=== PATIENT | male | born 1950 | race Caucasian/White ===

== ENCOUNTER 2017-02-19 07:01 | Day surgery (SDC) | payer MEDICARE, OTHER ==
[~2017-02-19] VITALS: Ht 177.8 cm; Wt 122.5 kg
[2017-02-19] MEDS ORDERED: NIFE20CA PO (07:26)
[2017-02-19] MEDS ORDERED: RIV20T PO (07:26)
[2017-02-19] MEDS ORDERED: AMIO200T33 PO (07:26)
[2017-02-19] MEDS ORDERED: TERA5CAP42 PO (07:26)
[2017-02-19] MEDS ORDERED: NAPR375T3 PO (07:26)
[2017-02-19] MEDS ORDERED: ATEN50TA PO (07:26)
[2017-02-19] MEDS ORDERED: METF-370 PO (07:26)
[2017-02-19] MEDS ORDERED: NALOXONE HCL 0.4 MG/ML VIAL IV ONE (07:30)
[2017-02-19] MEDS ORDERED: FLUMAZENIL 0.1 MG/ML INJ 10ML MDV IV ONE (07:30)
[2017-02-19] MEDS ORDERED: MIDAZOLAM HCL 1MG/1ML-2 ML VIAL IV ONE (07:30)
[2017-02-19] MEDS ORDERED: fentaNYL CITRATE 100 MCG/2 ML VL IV ONE (07:30)
[2017-02-19] MEDS ORDERED: LIDOCAINE VISCOUS 2% 15ML UD PO ONE (07:45)
[2017-02-19] MEDS ORDERED: diphenhdrAMINE HCL 50 MG/1 ML VL ONE (08:34)
[2017-02-19] MEDS ORDERED: diphenhdrAMINE HCL 50 MG/1 ML VL IV ONE (09:00)
== END 2017-02-19 09:40 | disposition home or self-care (01) ==
LOC: CATH 07:01
PROVIDERS: ATTEND Internal Medicine
DX: I34.0 Nonrheumatic mitral (valve) insufficiency (principal); I07.1 Rheumatic tricuspid insufficiency; I51.9 Heart disease, unspecified; I48.91 Unspecified atrial fibrillation; E11.9 Type 2 diabetes mellitus without complications; I10 Essential (primary) hypertension
CPT/HCPCS: 92960; 93005; 93312; J1200; J2250; J3010; J7030; 99152; 99153

== ENCOUNTER 2017-02-20 15:34 | Inpatient (IN) | payer MEDICARE, OTHER ==
[~2017-02-20] VITALS: Ht 177.8 cm; Wt 122.5 kg
[~2017-02-20 15:34] MED LIST: AMIO200T33 PO; ATEN50TA PO; METF-370 PO; NAPR375T3 PO; NIFE20CA PO; RIV20T PO; TERA5CAP42 PO
[2017-02-20] MEDS ORDERED: FUROSEMIDE 40 MG/4 ML VIAL IV ONE (16:30)
[2017-02-20 16:42] LABS: Basophils # (auto) 0 uL; Basophils % (auto) 0.2 % (0.0-2.0); Eosinophils # (auto) 0.1 uL; Eosinophils % (auto) 0.7 % (0.0-7.0); Hematocrit 42.5 % (41.0-53.0); Hemoglobin 14.3 g/dL (13.5-17.5); Lymphocytes # (auto) 0.6 uL; Lymphocytes % (auto) 7.2 % (10.0-50.0); Mean Corpuscular Hemoglobin 31.2 pg (28.0-32.0); Mean Corpuscular Hgb Conc. 33.7 g/dL (32.0-36.0); Mean Corpuscular Volume 92.6 fL (80.0-100.0); Mean Platelet Volume 8.9 fL (6.9-10.8); Monocytes # (auto) 0.6 uL; Monocytes % (auto) 6.5 % (0.0-12.0); Neutrophils # (auto) 7.5 uL; Neutrophils % (auto) 85.4 % (37.0-80.0); Platelet Count (auto) 105 10^3/uL (140-450); Red Cell Distribution Width 13.4 % (11.8-14.3); White Blood Cell 8.7 10^3/uL (4.4-10.8)
[2017-02-20 17:02] LABS: INR 1.38 (0.9-1.15); Partial Thromboplastin Time 31.5 sec (22.64-33.71); Prothrombin Time 15.1 sec (9.37-12.3)
[2017-02-20 17:04] LABS: Albumin 3.9 g/dL (3.4-5.0); Alkaline Phosphatase 58 U/L (45-117); Anion Gap 7 (5-15); Aspartate Aminotransferase 23 U/L (15-37); BUN/Creatinine Ratio 22.9; Bilirubin, Total 1.3 mg/dL (0.2-1.0); Blood Urea Nitrogen 24 mg/dL (7-18); Calcium 7.9 mg/dL (8.5-10.1); Carbon Dioxide 26 mmol/L (21-32); Chloride 107 mmol/L (98-107); GFR African American 91 mL/min; GFR Non-African American 75 mL/min; Glucose 154 mg/dL (74-106); Potassium 3.6 mmol/L (3.5-5.1); Sodium 140 mmol/L (136-145); Total Protein 7.2 g/dL (6.4-8.2)
[2017-02-20 17:09] LABS: B-Type Natriuretic Peptide 384.81 pg/mL (0-100)
[2017-02-20 17:13] LABS: Temperature: 22.1 C (20.0-25.0)
[2017-02-20] MEDS ORDERED: DOCUSATE SOD 100 MG CAP PO PRN (17:15)
[2017-02-20] MEDS ORDERED: NITROGLYCERIN 0.4 MG SL TAB SL PRN (17:15)
[2017-02-20] MEDS ORDERED: TEMAZEPAM 15 MG CAP PO PRN (17:15)
[2017-02-20] MEDS ORDERED: ACETAMINOPHEN 325 MG TAB PO PRN (17:15)
[2017-02-20] MEDS ORDERED: HYDROcodone-ACET 5/325MG TAB PO PRN (17:15)
[2017-02-20] MEDS ORDERED: ONDANSETRON HCL 4 MG/2 ML VIAL IV PRN (17:15)
[2017-02-20] MEDS ORDERED: MORPHINE SULFATE 10 MG/ML INJ 1ML SDV IV PRN (17:15)
[2017-02-20] MEDS ORDERED: DEXTROSE (50%) 50ML SYRG IV PRN (17:30)
[2017-02-20] MEDS ORDERED: MULTIPLE VITAMIN TAB PO ONE (17:45)
[2017-02-20] MEDS ORDERED: RIVAROXABAN 20 MG TAB PO SCH (18:00)
[2017-02-20] MEDS: InsuLIN REG 1unit/0.01ml Soln (100units/ml) SC SCH (22:00)
[2017-02-20] MEDS ORDERED: TERAZOSIN HCL 5 MG CAP PO SCH (22:00)
[2017-02-20] MEDS: NIFEdipine 10 MG CAP PO SCH (22:18)
[2017-02-20] MEDS: AMIODARONE HCL 200 MG TAB PO SCH (22:18)
[2017-02-20] MEDS: NAPROXEN 500 MG TAB PO SCH (22:18)
[2017-02-20] MEDS: SODIUM CHLOR 0.9% PF (SALINE LOCK) 10ML VIAL IV SCH (22:18)
[2017-02-20] MEDS: POTASSIUM CHL 10 Meq TABLET PO SCH (22:18)
[2017-02-20] MEDS: ACCU-CHEK COMFORT CURVE STRIP VI SCH (22:21)
[2017-02-21] MEDS ORDERED: FUROSEMIDE 40 MG/4 ML VIAL IV SCH (06:00)
[2017-02-21] MEDS: NIFEdipine 10 MG CAP PO SCH ×2 (06:25→14:07)
[2017-02-21] MEDS: SODIUM CHLOR 0.9% PF (SALINE LOCK) 10ML VIAL IV SCH ×2 (06:25→14:07)
[2017-02-21 06:45] LABS: Urine Bilirubin Negative (Negative); Urine Blood Negative /uL (Negative); Urine Color Yellow (Yellow); Urine Glucose Normal (Normal); Urine Ketone Negative (Negative); Urine Nitrite Negative (Negative); Urine RBC <1 /hpf (0 - 3); Urine Urobilinogen Normal (Negative); Urine pH 5.5 (5.0-8.0)
[2017-02-21] MEDS: ACCU-CHEK COMFORT CURVE STRIP VI SCH ×2 (07:32→11:30)
[2017-02-21] MEDS: InsuLIN REG 1unit/0.01ml Soln (100units/ml) SC SCH ×2 (07:33→12:49)
[2017-02-21] MEDS ORDERED: BUMETANIDE (0.25MG/ML) 4 ML VIAL IV ONE (07:45)
[2017-02-21 08:59] LABS: Basophils # (auto) 0 uL; Basophils % (auto) 0.4 % (0.0-2.0); Eosinophils # (auto) 0.1 uL; Eosinophils % (auto) 1.2 % (0.0-7.0); Hematocrit 43.7 % (41.0-53.0); Hemoglobin 14.6 g/dL (13.5-17.5); Lymphocytes # (auto) 0.9 uL; Lymphocytes % (auto) 11.8 % (10.0-50.0); Mean Corpuscular Hemoglobin 30.9 pg (28.0-32.0); Mean Corpuscular Hgb Conc. 33.4 g/dL (32.0-36.0); Mean Corpuscular Volume 92.4 fL (80.0-100.0); Mean Platelet Volume 8.7 fL (6.9-10.8); Monocytes # (auto) 0.5 uL; Monocytes % (auto) 7.4 % (0.0-12.0); Neutrophils # (auto) 5.7 uL; Neutrophils % (auto) 79.2 % (37.0-80.0); Nucleated Red Blood Cells % 0.1 %; Platelet Count (auto) 113 10^3/uL (140-450); Red Cell Distribution Width 13.4 % (11.8-14.3); White Blood Cell 7.2 10^3/uL (4.4-10.8)
[2017-02-21 09:22] LABS: Albumin 3.7 g/dL (3.4-5.0); Alkaline Phosphatase 57 U/L (45-117); Anion Gap 8 (5-15); Aspartate Aminotransferase 17 U/L (15-37); Blood Urea Nitrogen 18 mg/dL (7-18); Calcium 7.5 mg/dL (8.5-10.1); Carbon Dioxide 27 mmol/L (21-32); Chloride 105 mmol/L (98-107); GFR African American 96 mL/min; GFR Non-African American 79 mL/min; Glucose 140 mg/dL (74-106); Potassium 3.3 mmol/L (3.5-5.1); Sodium 140 mmol/L (136-145)
[2017-02-21] MEDS ORDERED: MULTIPLE VITAMIN TAB PO SCH (10:00)
[2017-02-21] MEDS ORDERED: ATENOLOL 50 MG TAB PO SCH (10:00)
[2017-02-21] MEDS ORDERED: PATIENTS OWN MEDICATION PO SCH ×2 (10:00)
[2017-02-21] MEDS: AMIODARONE HCL 200 MG TAB PO SCH (10:08)
[2017-02-21] MEDS: POTASSIUM CHL 10 Meq TABLET PO SCH (10:08)
[2017-02-21] MEDS: NAPROXEN 500 MG TAB PO SCH (10:09)
[2017-02-21 14:30] VITALS: BP 155/78
[2017-02-21] MEDS ORDERED: POTASSIUM CHL 10 Meq TABLET PO ONE (14:30)
== END 2017-02-21 15:07 | disposition home or self-care (01) | DRG 291 ==
LOC: ER 15:34 → OVERFLOW 15:35
PROVIDERS: ADMIT Internal Medicine; ATTEND Internal Medicine
DX: I13.0 Hypertensive heart and chronic kidney disease with heart failure and stage 1 through stage 4 chronic kidney disease, or unspecified chronic kidney disease (principal); I50.43 Acute on chronic combined systolic (congestive) and diastolic (congestive) heart failure; J96.01 Acute respiratory failure with hypoxia; E11.21 Type 2 diabetes mellitus with diabetic nephropathy; D68.9 Coagulation defect, unspecified; D68.69 Other thrombophilia; D69.6 Thrombocytopenia, unspecified; I48.92 Unspecified atrial flutter; E11.22 Type 2 diabetes mellitus with diabetic chronic kidney disease; E66.01 Morbid (severe) obesity due to excess calories; E83.51 Hypocalcemia; G47.30 Sleep apnea, unspecified; I25.10 Atherosclerotic heart disease of native coronary artery without angina pectoris; I48.0 Paroxysmal atrial fibrillation; N18.9 Chronic kidney disease, unspecified; Z90.89 Acquired absence of other organs; I25.2 Old myocardial infarction; Z68.38 Body mass index [BMI] 38.0-38.9, adult; Z79.01 Long term (current) use of anticoagulants; Z82.49 Family history of ischemic heart disease and other diseases of the circulatory system
CPT/HCPCS: 36415; 71020; 80053; 81001; 82962; 83036; 83735; 83880; 84484; 85025; 85379; 85610; 85730; 87086; 93005; 96374; 99291; G0378

== ENCOUNTER 2019-08-12 16:43 | Inpatient (IN) | payer MEDICARE, OTHER ==
[~2019-08-12] VITALS: Ht 177.8 cm; Wt 114.7 kg
[~2019-08-12 16:43] MED LIST changes: +NAPR375T27 PO; -NAPR375T3 PO
[2019-08-12] MEDS ORDERED: FUROSEMIDE 40 MG/4 ML VIAL IV ONE (17:15)
[2019-08-12 17:16] LABS: Basophils # (auto) 0 10 ^3/uL (0-0.2); Basophils % (auto) 0.4 % (0.0-2.0); Eosinophils # (auto) 0.1 10 ^3/uL (0-0.8); Eosinophils % (auto) 1.3 % (0.0-7.0); Hematocrit 40.6 % (41.0-53.0); Hemoglobin 13.1 g/dL (13.5-17.5); Lymphocytes # (auto) 0.5 10 ^3/uL (0.4-5.4); Lymphocytes % (auto) 4.9 % (10.0-50.0); Mean Corpuscular Hemoglobin 27.9 pg (28.0-32.0); Mean Corpuscular Hgb Conc. 32.2 g/dL (32.0-36.0); Mean Corpuscular Volume 86.7 fL (80.0-100.0); Monocytes # (auto) 0.9 10 ^3/uL (0-1.3); Monocytes % (auto) 8.1 % (0.0-12.0); Neutrophils # (auto) 9.3 10 ^3/uL (1.6-8.6); Neutrophils % (auto) 85.3 % (37.0-80.0); Platelet Count (auto) 121 10^3/uL (140-450); Red Blood Cells 4.68 10^6/uL (4.5-5.90); Red Cell Distribution Width 16.6 % (11.8-14.3); White Blood Cell 10.9 10^3/uL (4.4-10.8)
[2019-08-12] MEDS ORDERED: FUROSEMIDE 20 MG/2 ML VIAL ONE (17:17)
[2019-08-12 17:33] LABS: Albumin 3.2 g/dL (3.4-5.0); Anion Gap 10 (5-15); Blood Urea Nitrogen 23 mg/dL (7-18); Calcium 8.2 mg/dL (8.5-10.1); Carbon Dioxide 22 mmol/L (21-32); Chloride 106 mmol/L (98-107); Glucose 224 mg/dL (74-106); Potassium 4.2 mmol/L (3.5-5.1); Sodium 138 mmol/L (136-145)
[2019-08-12 17:38] LABS: Alanine Aminotransferase 34 U/L (16-61); Alkaline Phosphatase 83 U/L (45-117); Aspartate Aminotransferase 15 U/L (15-37); Bilirubin, Total 1.2 mg/dL (0.2-1.0); GFR African American 81 mL/min; GFR Non-African American 67 mL/min; Total Protein 6.8 g/dL (6.4-8.2)
[2019-08-12] MEDS ORDERED: TEMAZEPAM 15 MG CAP PO PRN (21:15)
[2019-08-12] MEDS ORDERED: ACETAMINOPHEN 325 MG TAB PO PRN (21:15)
[2019-08-12] MEDS ORDERED: DEXTROSE (50%) 50ML SYRG IV PRN (21:15)
[2019-08-12] MEDS ORDERED: ONDANSETRON HCL 4 MG/2 ML VIAL IV PRN (21:15)
[2019-08-12] MEDS ORDERED: MORPHINE SULF INJ 2 MG/ML SYRINGE 1ML IV PRN (21:45)
[2019-08-12] MEDS ORDERED: NITROGLYCERIN 0.4 MG SL TAB SL PRN (21:45)
[2019-08-12] MEDS: FAMOTIDINE 20 MG TAB PO SCH (22:13)
[2019-08-12] MEDS: AMIODARONE HCL 200 MG TAB PO SCH (22:13)
[2019-08-12] MEDS: InsuLIN REG 1unit/0.01ml Soln (100units/ml) SC SCH (22:14)
[2019-08-12] MEDS: ACCU-CHEK COMFORT CURVE STRIP VI SCH (22:16)
[2019-08-12 23:10] VITALS: BP 145/84
--- NOTE | 2019-08-12 23:10 | NUR ---
Telemetry admit from ER FRANCESCA OLSON admitted to Telemetry unit for acute on chronic CHF after SBAR received. Patient oriented to [facility] [place], RN primary RN, unit, room, bed, and unit policies regarding patient care and visiting hours. Patient now on continuous telemetry monitoring, tele box # 30 and telemetry reading on arrival to unit is SR 80S. Patient placed on bedside oxygen, weighed by bedscale and encouraged to call if they need something. All questions and concerns addressed, patient verbalized understanding. Note:
[2019-08-12 23:30] VITALS: BP 145/84
[2019-08-13 05:00] VITALS: BP 156/93
[2019-08-13 05:55] LABS: Basophils # (auto) 0.1 10 ^3/uL (0-0.2); Basophils % (auto) 0.6 % (0.0-2.0); Eosinophils # (auto) 0.2 10 ^3/uL (0-0.8); Eosinophils % (auto) 1.8 % (0.0-7.0); Hematocrit 39.3 % (41.0-53.0); Hemoglobin 12.9 g/dL (13.5-17.5); Lymphocytes # (auto) 0.6 10 ^3/uL (0.4-5.4); Lymphocytes % (auto) 6.8 % (10.0-50.0); Mean Corpuscular Hgb Conc. 32.8 g/dL (32.0-36.0); Mean Corpuscular Volume 85.3 fL (80.0-100.0); Monocytes # (auto) 0.6 10 ^3/uL (0-1.3); Monocytes % (auto) 7.3 % (0.0-12.0); Neutrophils # (auto) 7.3 10 ^3/uL (1.6-8.6); Neutrophils % (auto) 83.5 % (37.0-80.0); Platelet Count (auto) 114 10^3/uL (140-450); Red Cell Distribution Width 16.2 % (11.8-14.3); White Blood Cell 8.7 10^3/uL (4.4-10.8)
[2019-08-13] MEDS ORDERED: FUROSEMIDE 20 MG/2 ML VIAL IV SCH ×2 (06:00→12:45)
[2019-08-13 06:19] LABS: Potassium 3.6 mmol/L (3.5-5.1)
[2019-08-13] MEDS: ACCU-CHEK COMFORT CURVE STRIP VI SCH ×4 (06:19→22:21)
[2019-08-13] MEDS: InsuLIN REG 1unit/0.01ml Soln (100units/ml) SC SCH ×4 (06:19→22:30)
[2019-08-13 06:25] LABS: BUN/Creatinine Ratio 21.8
--- NOTE | 2019-08-13 07:40 | NUR ---
Opening shift note assumed care of patient from NOC Nurse. Patient is AOx4, no s/s of distress, sob or pain noted. Bed is in lowest locked position, side rails up x2, and call light is within reach. Updated patient on plan of care, patient verbalized understanding. I will continue to monitor q1hr and PRN.
[2019-08-13 09:00] VITALS: BP 149/98
[2019-08-13] MEDS ORDERED: FUROSEMIDE 40 MG TAB PO SCH (10:00)
[2019-08-13] MEDS: NIFEdipine ER 30 MG TAB PO SCH (10:40)
[2019-08-13] MEDS: AMIODARONE HCL 200 MG TAB PO SCH ×2 (10:41→22:20)
[2019-08-13] MEDS: ATENOLOL 50 MG TAB PO SCH (10:41)
[2019-08-13] MEDS: FAMOTIDINE 20 MG TAB PO SCH ×2 (10:41→22:20)
[2019-08-13] MEDS ORDERED: OPTISON 3ml Vial for INJ IV ONE (11:37)
--- NOTE | 2019-08-13 12:45 | NUR ---
Physician rounding Dr. Ghosh at bedside. Updated him on plan of care. Per MD awaiting Echo results and cardiac consult, MD ordered lasix to be given. I will follow through with MD orders.
[2019-08-13] MEDS: FUROSEMIDE 100 MG/10ML VIAL IV SCH ×2 (13:19→17:57)
--- NOTE | 2019-08-13 16:00 | NUR ---
Patient accidentally removed IV. Will initiate new IV access.
--- NOTE | 2019-08-13 17:15 | NUR ---
Paged mining consultant hospitalist Paged mining consultant regarding D-dimer level 0f 0.74 and elevated B/P of 156/100. Awaiting call back.
--- NOTE | 2019-08-13 17:18 | NUR ---
Received call back Provider hernando ordered CT Angio with contrast to R/O PE and Labetalol 10m PRN for SBP >160mmhg. I will follow through with orders.
[2019-08-13] MEDS ORDERED: LABETALOL HCL 5 MG/ML 4ML SYRINGE IV PRN (17:30)
--- NOTE | 2019-08-13 17:50 | NUR ---
IV insertion IV access obtained, via clean sterile technique by inserting 22 gauge catheter at left wrist after 4 attempts. IV secured properly. No trauma to site. Patient tolerated well.
[2019-08-13] MEDS: RIVAROXABAN 20 MG TAB PO SCH (17:57)
--- NOTE | 2019-08-13 18:30 | NUR ---
B/P REASSESSMENT B/P is at 155/94, HR 81bpm. It is still elevated i will administer the blood pressure medication as ordered.
--- NOTE | 2019-08-13 19:20 | NUR ---
end of shift note care of patient endorsed to noc ROZ Alvarez. No s/s of distress noted at this time.
--- NOTE | 2019-08-13 19:30 | NUR ---
Opening Shift Note Assumed care of patient, awake and alert. No S/S of distress/SOB or pain. Instructed on POC and to call for assist PRN, will continue to monitor for changes Q1hr and PRN.
[2019-08-13 22:00] VITALS: BP 155/99
--- NOTE | 2019-08-13 22:15 | NUR ---
BS-160 NO S/S HYPERGLYCEMIA NOTED. ADMINISTERED 2UNITS OF REGULAR INSULIN. PATIENT TOLERATED WELL. WILL CONTINUE TO MONITOR PATIENT.
[2019-08-13] MEDS: TERAZOSIN HCL 5 MG CAP PO SCH (22:20)
[2019-08-14] MEDS: FUROSEMIDE 100 MG/10ML VIAL IV SCH ×2 (04:59→17:21)
[2019-08-14 05:00] VITALS: BP 167/100
[2019-08-14] MEDS: LABETALOL HCL 5 MG/ML ML 20ML VIAL IV PRN (05:03)
--- NOTE | 2019-08-14 05:19 | NUR ---
HTN PATIENT CURRENT BP 167/100 HR 72. PATIENT IN NO APPARENT CARDIAC OR PULMONARY DISTRESS OR ANY PAIN. ADMINISTERED LABETOLOL 10MG IV PRESCRIBED. WILL CONTINUE TO MONITOR PATIENT.
[2019-08-14] MEDS: ACCU-CHEK COMFORT CURVE STRIP VI SCH ×4 (06:00→22:28)
[2019-08-14] MEDS: InsuLIN REG 1unit/0.01ml Soln (100units/ml) SC SCH ×4 (06:14→22:00)
[2019-08-14] MEDS ORDERED: IOHEXOL 350 MG/ML 100ML IJ ONE (07:36)
--- NOTE | 2019-08-14 07:45 | NUR ---
Opening Shift Note Assumed care of patient, awake, alert, and oriented. No S/S of distress/SOB or pain. Bed in lowest/locked position, bed rails up x2, call light within reach. Instructed on POC and to call for assist PRN. Will continue to monitor for changes Q1hr and PRN.
[2019-08-14 08:30] VITALS: BP 146/94
[2019-08-14] MEDS: AMIODARONE HCL 200 MG TAB PO SCH ×2 (10:07→22:27)
[2019-08-14] MEDS: FAMOTIDINE 20 MG TAB PO SCH ×2 (10:07→22:26)
[2019-08-14] MEDS: POTASSIUM CHL 20 Meq TABLET PO SCH (10:07)
[2019-08-14] MEDS: ATENOLOL 50 MG TAB PO SCH (10:08)
[2019-08-14] MEDS: NIFEdipine ER 30 MG TAB PO SCH (10:08)
[2019-08-14 13:34] VITALS: BP 148/98
[2019-08-14 15:08] LABS: Cholesterol 123 mg/dL (< 200); Triglycerides 84 mg/dL (< 150)
[2019-08-14 15:11] LABS: HDL Cholesterol 41 mg/dL (40-59); LDL Cholesterol 69 mg/dL (< 100)
--- NOTE | 2019-08-14 16:43 | NUR ---
IV removal IV DC'd with clean sterile technique, catheter fully intact. Pressure dressing applied to site. Patient tolerated well.
[2019-08-14 17:00] VITALS: BP 153/92
[2019-08-14] MEDS: RIVAROXABAN 20 MG TAB PO SCH (17:21)
[2019-08-14 22:20] VITALS: BP 155/101
[2019-08-14] MEDS: SACUBITRIL-VALSARTAN 24mg/26mg TAB PO SCH (22:26)
[2019-08-14] MEDS: TERAZOSIN HCL 5 MG CAP PO SCH (22:27)
[2019-08-14] MEDS: CARVEDILOL 12.5 MG TAB PO SCH (22:28)
[2019-08-15 05:30] VITALS: BP 145/95
[2019-08-15] MEDS: FUROSEMIDE 100 MG/10ML VIAL IV SCH ×2 (05:59→16:55)
[2019-08-15] MEDS: ACCU-CHEK COMFORT CURVE STRIP VI SCH ×4 (06:00→21:12)
[2019-08-15] MEDS: InsuLIN REG 1unit/0.01ml Soln (100units/ml) SC SCH ×4 (06:44→21:26)
[2019-08-15] MEDS ORDERED: ADENOSINE 102 MG in GIVE UN-DILUTED 0 ML IV STA (08:18)
[2019-08-15 09:01] VITALS: BP 151/97
[2019-08-15] MEDS: POTASSIUM CHL 20 Meq TABLET PO SCH (11:52)
[2019-08-15] MEDS: AMIODARONE HCL 200 MG TAB PO SCH ×2 (11:53→21:09)
[2019-08-15] MEDS: CARVEDILOL 12.5 MG TAB PO SCH ×2 (11:53→21:10)
[2019-08-15] MEDS: SACUBITRIL-VALSARTAN 24mg/26mg TAB PO SCH ×2 (11:54→21:10)
[2019-08-15] MEDS: FAMOTIDINE 20 MG TAB PO SCH ×2 (11:54→21:10)
[2019-08-15] MEDS: NIFEdipine ER 30 MG TAB PO SCH (11:54)
[2019-08-15 12:30] VITALS: BP 179/95
[2019-08-15] MEDS: RIVAROXABAN 20 MG TAB PO SCH (16:54)
[2019-08-15] MEDS: LABETALOL HCL 5 MG/ML ML 20ML VIAL IV PRN ×2 (16:56→21:12)
[2019-08-15 17:10] VITALS: BP 122/69
[2019-08-15 17:14] VITALS: BP 197/81
[2019-08-15] MEDS: TERAZOSIN HCL 5 MG CAP PO SCH (21:11)
[2019-08-15 22:00] VITALS: BP 170/103
[2019-08-16] MEDS: InsuLIN REG 1unit/0.01ml Soln (100units/ml) SC SCH ×4 (05:58→22:08)
[2019-08-16] MEDS: ACCU-CHEK COMFORT CURVE STRIP VI SCH ×4 (05:58→22:03)
[2019-08-16] MEDS: FUROSEMIDE 100 MG/10ML VIAL IV SCH ×2 (05:58→17:30)
[2019-08-16 06:15] VITALS: BP 150/98
[2019-08-16 08:00] VITALS: BP 150/98
--- NOTE | 2019-08-16 08:00 | NUR ---
ASSESSMENT NOTE PT IS ALERT ORIENTED X4, SITTING UP AT THE SIDE OF THE BED, NO DISTRESS NOTED, EDEMA 3 TO 4+ ON BOTH FEET, ABLE TO SELF REPOSITION AND VERBALIS HIS DEMANDS, CONTINUE ON FLUID RESTRICTION, PAIN 0/10 AT THIS TIE, SYLWIA LIGHT WITHIN REACH
[2019-08-16 09:00] VITALS: BP 150/90
[2019-08-16] MEDS: POTASSIUM CHL 20 Meq TABLET PO SCH (09:44)
[2019-08-16] MEDS: SACUBITRIL-VALSARTAN 24mg/26mg TAB PO SCH ×2 (09:44→22:02)
[2019-08-16] MEDS: NIFEdipine ER 30 MG TAB PO SCH (09:44)
[2019-08-16] MEDS: FAMOTIDINE 20 MG TAB PO SCH ×2 (09:45→22:02)
[2019-08-16] MEDS: AMIODARONE HCL 200 MG TAB PO SCH ×2 (09:45→22:01)
--- NOTE | 2019-08-16 09:55 | NUR ---
DR WHITE AT BED SIDE FOLLOWING UP WITH THE STRESS TEST RESULTS, AND PLAN OF CARE
[2019-08-16] MEDS: CARVEDILOL 12.5 MG TAB PO SCH ×2 (09:58→22:02)
[2019-08-16 13:00] VITALS: BP 113/74
[2019-08-16 17:00] VITALS: BP 108/63
[2019-08-16] MEDS: RIVAROXABAN 20 MG TAB PO SCH (17:30)
--- NOTE | 2019-08-16 18:34 | NUR ---
PT CONTINUE STABLE, CONTINUE MONITORING
[2019-08-16] MEDS: TERAZOSIN HCL 5 MG CAP PO SCH (22:02)
[2019-08-16 23:25] VITALS: BP 145/79
[2019-08-17 05:39] VITALS: BP 128/72
[2019-08-17] MEDS: InsuLIN REG 1unit/0.01ml Soln (100units/ml) SC SCH ×4 (07:00→22:00)
[2019-08-17] MEDS: FUROSEMIDE 100 MG/10ML VIAL IV SCH ×2 (07:02→18:11)
[2019-08-17] MEDS: ACCU-CHEK COMFORT CURVE STRIP VI SCH ×4 (07:03→22:00)
[2019-08-17 08:00] VITALS: BP_SYST 126; BP_SYST 128; BP_DIAS 72
[2019-08-17] MEDS: SACUBITRIL-VALSARTAN 24mg/26mg TAB PO SCH ×2 (10:27→22:39)
[2019-08-17] MEDS: POTASSIUM CHL 20 Meq TABLET PO SCH (10:27)
[2019-08-17] MEDS: AMIODARONE HCL 200 MG TAB PO SCH ×2 (10:27→22:40)
[2019-08-17] MEDS: CARVEDILOL 12.5 MG TAB PO SCH ×2 (10:27→22:41)
[2019-08-17] MEDS: NIFEdipine ER 30 MG TAB PO SCH (10:28)
[2019-08-17] MEDS: FAMOTIDINE 20 MG TAB PO SCH ×2 (10:28→22:41)
[2019-08-17 12:00] VITALS: BP 138/82
[2019-08-17 17:00] VITALS: BP 132/73
[2019-08-17] MEDS: RIVAROXABAN 20 MG TAB PO SCH (18:10)
--- NOTE | 2019-08-17 18:31 | NUR ---
PT CONTINUE STABLE, CONTINUE MONITORING
[2019-08-17 22:00] VITALS: BP 115/64
[2019-08-17] MEDS: TERAZOSIN HCL 5 MG CAP PO SCH (22:42)
[2019-08-18 05:09] VITALS: BP 121/72
[2019-08-18] MEDS: FUROSEMIDE 100 MG/10ML VIAL IV SCH ×2 (06:19→18:45)
[2019-08-18] MEDS: ACCU-CHEK COMFORT CURVE STRIP VI SCH ×4 (06:31→22:22)
[2019-08-18] MEDS: InsuLIN REG 1unit/0.01ml Soln (100units/ml) SC SCH ×4 (06:31→22:23)
[2019-08-18 08:00] VITALS: BP 135/87
--- NOTE | 2019-08-18 08:10 | NUR ---
ASSUMED CARE PATIENT RESTING IN BED ALERT AND AWAKE. DISCUSSED/ EDUCATED ON LEFT HEART CATHETERIZATION. PATIENT WAS FREE FROM S/S DISTRESS, NO PAIN NOTED. WILL CONTINUE TO MONITOR.
--- NOTE | 2019-08-18 09:40 | NUR ---
CONSENTS SIGNED PATIENT SIGNED CONSENTS FOR LHC, ANETHESIA, AND BLOOD PRODUCTS FOR LEFT HEART CATHETERIZATION PROCEDURE.
--- NOTE | 2019-08-18 09:55 | NUR ---
MEDICATIONS HELD HELD 1000 MEDICATIONS FOR PROCEDURE. VS 97.5,70,18,135/87,93%
--- NOTE | 2019-08-18 09:55 | NUR ---
TRANSPORTED PATIENT TRANSPORTED PATIENT TO W[facility] VALVE MECHANIC, NO S/S OF DISTRESS. NO CP, SOB AT REST, SOB WITH EXERTION, N/V/D NOTED.
[2019-08-18] MEDS: FAMOTIDINE 20 MG TAB PO SCH ×3 (10:00→22:22)
[2019-08-18] MEDS: CARVEDILOL 12.5 MG TAB PO SCH ×3 (10:00→22:21)
[2019-08-18] MEDS: NIFEdipine ER 30 MG TAB PO SCH ×2 (10:00→13:12)
[2019-08-18] MEDS: AMIODARONE HCL 200 MG TAB PO SCH ×3 (10:00→22:20)
[2019-08-18] MEDS: SACUBITRIL-VALSARTAN 24mg/26mg TAB PO SCH ×3 (10:00→22:21)
[2019-08-18] MEDS: POTASSIUM CHL 20 Meq TABLET PO SCH (10:00)
[2019-08-18] MEDS ORDERED: LIDOCAINE 2%HCL (LOCAL ANESTH.) INJ 20ML MDV ONE (10:03)
[2019-08-18] MEDS ORDERED: IOHEXOL 350 MG/ML 100ML IJ ONE (10:03)
[2019-08-18 10:30] LABS: Basophils # (auto) 0 10 ^3/uL (0-0.2); Basophils % (auto) 0.6 % (0.0-2.0); Eosinophils # (auto) 0.2 10 ^3/uL (0-0.8); Eosinophils % (auto) 2.1 % (0.0-7.0); Hematocrit 43.6 % (41.0-53.0); Hemoglobin 13.9 g/dL (13.5-17.5); Lymphocytes # (auto) 0.6 10 ^3/uL (0.4-5.4); Lymphocytes % (auto) 7.7 % (10.0-50.0); Mean Corpuscular Hemoglobin 27.4 pg (28.0-32.0); Mean Corpuscular Hgb Conc. 31.9 g/dL (32.0-36.0); Mean Corpuscular Volume 85.8 fL (80.0-100.0); Monocytes # (auto) 0.6 10 ^3/uL (0-1.3); Monocytes % (auto) 7.9 % (0.0-12.0); Neutrophils # (auto) 6.5 10 ^3/uL (1.6-8.6); Neutrophils % (auto) 81.7 % (37.0-80.0); Platelet Count (auto) 107 10^3/uL (140-450); Red Blood Cells 5.08 10^6/uL (4.5-5.90); Red Cell Distribution Width 16.8 % (11.8-14.3); White Blood Cell 7.9 10^3/uL (4.4-10.8)
[2019-08-18] MEDS ORDERED: ANGIOMAX 250 MG VIAL IV ONE (10:37)
[2019-08-18] MEDS ORDERED: VERAPAMIL 2.5MG/ML INJ 2ML VIAL IV ONE (10:38)
[2019-08-18] MEDS ORDERED: fentaNYL CITRATE 100 MCG/2 ML VL ONE (10:38)
[2019-08-18] MEDS ORDERED: HEPARIN SODIUM (PORCINE) 5000 UNITS/ML 1ML VIAL ONE (10:38)
[2019-08-18] MEDS ORDERED: MIDAZOLAM HCL 1MG/1ML-2 ML VIAL ONE (10:39)
[2019-08-18] MEDS ORDERED: SODIUM CHL 0.9% 0 ML ONE (10:39)
[2019-08-18] MEDS ORDERED: SODIUM CHL 0.9% 50 ML ONE (10:44)
[2019-08-18] MEDS ORDERED: NITROGLYCERIN 5MG/ML 10ML VIAL IV ONE (10:44)
[2019-08-18 10:49] LABS: INR 1.66 (0.9-1.15); Partial Thromboplastin Time 36.9 sec (23.64-32.05)
[2019-08-18 10:50] LABS: Calcium 7.9 mg/dL (8.5-10.1)
[2019-08-18 10:52] LABS: BUN/Creatinine Ratio 12.3
[2019-08-18] MEDS ORDERED: IODIXANOL 320MG/ML 100ML BTL IV ONE (11:05)
[2019-08-18] MEDS ORDERED: POTASSIUM EFFERVESENT TAB 25 MEQ PO ONE (11:30)
--- NOTE | 2019-08-18 11:52 | NUR ---
SLOT MACHINE MECHANIC REPORT ROZ JONES NO INTERVENTIONS PERFORMED. PATIENT REFERRED TO OPEN HEART. VASC CLIP ON R/WRIST. PATIENT AWAKE, DENIES PAIN, NO S/S OF DISTRESS. VS BP 123/83, HR 62. EDUCATED ON RELEASE INSTRUCTIONS OF THE VASC CLIP. 2ML OF AIR RELEASED EVERY 15MIN FOR THE FIRST HOUR, IF BLEEDING IS NOTED PUSH BACK 2ML OF AIR. WILL REVIEW AT BEDSIDE.
[2019-08-18 12:00] VITALS: BP 133/84
--- NOTE | 2019-08-18 12:00 | NUR ---
PATIENT RETURNED TO UNIT EDUCATED ON VASC CLIP. WILL CONTINUE TO MONITOR. Addendum: 08/18/19 at 1942 by MINO BLANCO RN RN AT 1220 RELEASED 2ML OF AIR, NO NOTED BLEEDING
--- NOTE | 2019-08-18 12:50 | NUR ---
VASC CLIP NO NOTED BLEEDING RELEASED 2ML OF AIR.
--- NOTE | 2019-08-18 13:40 | NUR ---
VASC CLIP NOTED SCANT BLEEDING AT THE EDGES, REPLACED 2ML OF AIR TO VASC CLIP.
--- NOTE | 2019-08-18 14:15 | NUR ---
VASC CLIP NO NOTED BLEEDING. WILL CONTINUE TO MONITOR
--- NOTE | 2019-08-18 15:15 | NUR ---
VASC CLIP NO NOTED BLEEDING, WILL CONTINUE TO MONITOR.
--- NOTE | 2019-08-18 16:15 | NUR ---
VASC CLIP NO NOTED BLEEDING
[2019-08-18 17:00] VITALS: BP 133/89
--- NOTE | 2019-08-18 17:15 | NUR ---
VASC CLIP NO NOTED BLEEDING, REMOVED CLAMP, APPLIED GAUZE AND TEGADERM
[2019-08-18] MEDS: RIVAROXABAN 20 MG TAB PO SCH (18:45)
--- NOTE | 2019-08-18 19:30 | NUR ---
Opening Shift Note Assumed care of patient after receiving report from ROZ Larkin. Patient awake and alert, observed to be out of bed to use restroom, steady, even gait noted. No S/S of distress/SOB or pain. Call light within reach with bed in lowest position x2 side rails. Instructed on POC and to call for assist PRN, will continue to monitor for changes Q1hr and PRN.
[2019-08-18 22:00] VITALS: BP 128/68
[2019-08-18] MEDS: TERAZOSIN HCL 5 MG CAP PO SCH (22:22)
[2019-08-19 05:00] VITALS: BP 116/54
[2019-08-19] MEDS: FUROSEMIDE 100 MG/10ML VIAL IV SCH ×2 (06:10→18:13)
[2019-08-19] MEDS: InsuLIN REG 1unit/0.01ml Soln (100units/ml) SC SCH ×4 (06:19→22:36)
[2019-08-19] MEDS: ACCU-CHEK COMFORT CURVE STRIP VI SCH ×4 (06:19→22:00)
[2019-08-19 08:00] VITALS: BP 113/71
[2019-08-19 09:00] VITALS: BP 113/71
[2019-08-19] MEDS: FAMOTIDINE 20 MG TAB PO SCH ×2 (10:01→22:35)
[2019-08-19] MEDS: POTASSIUM CHL 20 Meq TABLET PO SCH (10:01)
[2019-08-19] MEDS: AMIODARONE HCL 200 MG TAB PO SCH ×2 (10:02→22:33)
[2019-08-19] MEDS: SACUBITRIL-VALSARTAN 24mg/26mg TAB PO SCH ×2 (10:02→22:34)
[2019-08-19] MEDS: NIFEdipine ER 30 MG TAB PO SCH (10:03)
[2019-08-19] MEDS: CARVEDILOL 12.5 MG TAB PO SCH ×2 (10:05→22:34)
--- NOTE | 2019-08-19 10:30 | NUR ---
Respiratory note: COMPLETE PFT NOT INDICATED ON PT WITH ABG RESULTING IN PAO2 GREATER THAN 50. ABG RESULTS AVAILABLE IN [facility]. Addendum: 08/19/19 at 1312 by AUDRA MADRID RT CALLED DR PRIETO TO REPORT RESULTS. UNABLE TO LEAVE A MESSAGE. WILL TRY AGAIN A LATER TIME.
--- NOTE | 2019-08-19 11:48 | NUR ---
POC BLOOD GLUCOSE 177MG/DL
[2019-08-19 13:00] VITALS: BP 113/67
[2019-08-19 17:05] VITALS: BP 119/78
--- NOTE | 2019-08-19 18:10 | NUR ---
POC BLOOD GLUCOSE 139 MG/DL
[2019-08-19] MEDS: RIVAROXABAN 20 MG TAB PO SCH (18:13)
--- NOTE | 2019-08-19 19:15 | NUR ---
ENDORSED ENDORSED TO THE [facility] ROZ SALAS THE LAB COLLECTION FOR PATIENT, COVID, RSV, AND INFLUENZA A/B. LABS ARE TO BE WALKED BACK TO LAB. LAB SENDS OUT COLLECTIONS BY 0800 IN THE MORNING. SHIFT REPORT WAS GIVEN.
--- NOTE | 2019-08-19 19:30 | NUR ---
Opening Shift Note Assumed care of patient after receiving report from Chaya, RN. Patient awake and alert, resting in bed comfortably. No S/S of distress/SOB or pain. Call light within reach and bed in lowest position x2 side rails. Instructed on POC and to call for assist PRN, will continue to monitor for changes Q1hr and PRN.
[2019-08-19 20:00] VITALS: BP 123/86
[2019-08-19] MEDS: TERAZOSIN HCL 5 MG CAP PO SCH (22:35)
--- NOTE | 2019-08-19 22:58 | NUR ---
Cultures sent to lab Cultures for COVID, RSV, and Flu sent to lab per MD orders.
[2019-08-20 05:00] VITALS: BP 118/81
[2019-08-20] MEDS: FUROSEMIDE 100 MG/10ML VIAL IV SCH ×2 (06:27→18:42)
[2019-08-20] MEDS: ACCU-CHEK COMFORT CURVE STRIP VI SCH ×3 (06:45→17:00)
[2019-08-20] MEDS: InsuLIN REG 1unit/0.01ml Soln (100units/ml) SC SCH ×3 (06:46→17:00)
[2019-08-20 09:14] VITALS: BP 123/62
--- NOTE | 2019-08-20 09:19 | NUR ---
I faxed higher level of care order/clinical packet to [facility].
--- NOTE | 2019-08-20 09:48 | NUR ---
I received a call from Annabelle at the [facility] Transfer center-provided her with additional clinical information as requested. Per Annabelle, if patient is accepted for transfer they will need a negative COVID-19 test faxed to them.
[2019-08-20] MEDS: FAMOTIDINE 20 MG TAB PO SCH (12:07)
[2019-08-20] MEDS: SACUBITRIL-VALSARTAN 24mg/26mg TAB PO SCH (12:07)
[2019-08-20] MEDS: POTASSIUM CHL 20 Meq TABLET PO SCH (12:08)
[2019-08-20] MEDS: AMIODARONE HCL 200 MG TAB PO SCH (12:08)
[2019-08-20] MEDS: NIFEdipine ER 30 MG TAB PO SCH (12:09)
[2019-08-20] MEDS: CARVEDILOL 12.5 MG TAB PO SCH (12:10)
[2019-08-20 13:00] VITALS: BP 125/82
[2019-08-20] MEDS ORDERED: IOHEXOL 350 MG/ML 100ML IJ ONE (13:35)
--- NOTE | 2019-08-20 13:42 | NUR ---
I faxed negative COVID-19 test result and transfer back agreement to [facility].
--- NOTE | 2019-08-20 14:51 | NUR ---
assessment Patient is a 69 year old male who is alert and oriented. Patients cognitive abilities are intact. Prior to admission patient lived home with his Daniela and functioned independently. Patient informed me he is able to care for his own ADLs. Per patient he has no need for DME. Patients PCP is Dr Thompson. Patient is aware of his ss consult for transfer to higher level of care. Patient agrees to transfer. I informed patient he has a right to speak to a geriatric social worker regarding all care. I informed patient he has a right to participate in any and all discharge planning. Patient does not have a POA and advanced directive. I have offered patient information on POA and advanced directives. I informed the patient the advantages and benefits of having an Advanced Directive. Patient verbalized understanding and agreed to discharge plan. Addendum: 08/20/19 at 1453 by Mariah ANDERSON Amended: Links added.
--- NOTE | 2019-08-20 16:00 | NUR ---
[facility] COMMUNICATION [place] FROM [facility], PATIENT HAS BEEN ACCEPTED AND HAS A BED ON 7100, RM1/BED 3. CALL [phone]
--- NOTE | 2019-08-20 16:16 | NUR ---
COMMUNICATION JUAQUIN NEFF FOR [facility]AM[facility] UPDATED ON TRANSPORTATION TO [facility]
--- NOTE | 2019-08-20 16:16 | NUR ---
COMMUNICATION [facility], UPDATED TRANSPORTATION [facility] [phone] ARRIVING AT 1800.
[2019-08-20 16:50] VITALS: BP 136/77
--- NOTE | 2019-08-20 17:01 | NUR ---
Aung Duncan with [facility] patient has been accepted to [address] room 1 bed 3. ROZ Larkin was provided with to give report. Transportation has been arranged with [facility] Ph:) with ALS-tele monitor service, forklift picker time 18:00. Informed ROZ Larkin.
--- NOTE | 2019-08-20 18:10 | NUR ---
[facility] COMMUNICATION TRANSPORTATION WILL BE ARRIVING 90 MINS POST TIME, 1939.
[2019-08-20] MEDS: RIVAROXABAN 20 MG TAB PO SCH (18:41)
--- NOTE | 2019-08-20 19:00 | NUR ---
[facility] ARRIVED FOR TRANSFER TO [facility]
--- NOTE | 2019-08-20 19:35 | NUR ---
REPORT TO [facility] CALLED [facility] GAVE REPORT TO ROZ CASTILLO. PATIENT ACCEPTED BY DR. DE LA ROSA. UN[address] ROOM 1, BED 3.
--- NOTE | 2019-08-20 20:24 | NUR ---
PATIENT TRANSFER PATIENT TRANSFER OFF UNIT BY [facility] TRANSPORTATION
== END 2019-08-20 20:24 | disposition short-term general hospital (02) | DRG 286 ==
LOC: ER 16:43 → EDBD 16:43 → TELE 16:44 → TELE-CENTR 23:05
PROVIDERS: ADMIT Nurse Practitioner; ATTEND Family Medicine
PROC: 4A023N7 Measurement of Cardiac Sampling and Pressure, Left Heart, Percutaneous Approach (ICD-10-PCS; principal; 2019-08-18)
PROC: B2151ZZ Fluoroscopy of Left Heart using Low Osmolar Contrast (ICD-10-PCS; 2019-08-18)
PROC: B2111ZZ Fluoroscopy of Multiple Coronary Arteries using Low Osmolar Contrast (ICD-10-PCS; 2019-08-18)
DX: I11.0 Hypertensive heart disease with heart failure (principal); I71.01 Dissection of thoracic aorta; I48.20 Chronic atrial fibrillation, unspecified; Z68.41 Body mass index [BMI] 40.0-44.9, adult; I50.43 Acute on chronic combined systolic (congestive) and diastolic (congestive) heart failure; E66.9 Obesity, unspecified; E11.21 Type 2 diabetes mellitus with diabetic nephropathy; I27.20 Pulmonary hypertension, unspecified; N40.0 Benign prostatic hyperplasia without lower urinary tract symptoms; J44.9 Chronic obstructive pulmonary disease, unspecified; I25.10 Atherosclerotic heart disease of native coronary artery without angina pectoris; Z79.899 Other long term (current) drug therapy; E11.40 Type 2 diabetes mellitus with diabetic neuropathy, unspecified; I25.5 Ischemic cardiomyopathy; Z11.59 Encounter for screening for other viral diseases
CPT/HCPCS: 36415; 36600; 71045; 71275; 76700; 78452; 80048; 80053; 80061; 82805; 82962; 83036; 83735; 83880; 84484; 85025; 85379; 85610; 85730; 87804; 87807; 93005; 93017; 93306; 93458; 93886; 93970; 96374; 99152; 99153; G0378; J0153; J1815; J2250; J3490; Q9956; Q9967